=== PATIENT | female | born 1980 | race African-American/Black ===

== ENCOUNTER 2016-05-10 07:05 | Day surgery (SDC) | payer MEDICAID ==
[~2016-05-10] VITALS: Ht 160 cm; Wt 90.9 kg
[~2016-05-10 07:05] MED LIST: KETOROLAC TROMETHAMINE 60 MG/2 ML VIAL IM ONE; METOCLOPRAMIDE HCL 5 MG/ML 2 ML VIAL IVP ONE; ONDANSETRON HCL 4 MG/2 ML VIAL IVP ONE; PROPOFOL 1% 20 ML VIAL IVP ONE
[2016-05-10] MEDS ORDERED: SODIUM CHLORIDE 0.9% 1,000 ML IV ONE ×2 (07:26→07:30)
[2016-05-10] MEDS ORDERED: FentaNYL CITRATE-PF 100 MCG/2 ML VIAL IVP PRN (07:45)
[2016-05-10] MEDS ORDERED: HYDROmorphone 2 MG/ML SYRINGE IVP PRN (07:45)
[2016-05-10] MEDS ORDERED: LIDOCAINE HCL 2% VISCOUS 15 ML SOLUTION UDCUP PO ONE (07:45)
[2016-05-10] MEDS ORDERED: MEPERIDINE-PF 25 MG/ML SYRINGE IVP PRN (07:45)
[2016-05-10] MEDS ORDERED: OXYGEN THERAPY IH SCH (08:00)
[2016-05-10] MEDS ORDERED: ATOR20TA86 PO (09:19)
[2016-05-10] MEDS ORDERED: LEVO150 PO (09:19)
[2016-05-10] MEDS ORDERED: HYDR25TA PO (09:19)
== END 2016-05-10 09:40 | disposition home or self-care (01) ==
LOC: SURGERY 07:05
PROVIDERS: ATTEND Specialist
DX: K29.70 Gastritis, unspecified, without bleeding (principal); I10 Essential (primary) hypertension; E03.9 Hypothyroidism, unspecified; E66.9 Obesity, unspecified; J30.9 Allergic rhinitis, unspecified; F41.9 Anxiety disorder, unspecified; F32.9 Major depressive disorder, single episode, unspecified; M54.30 Sciatica, unspecified side; E78.6 Lipoprotein deficiency; K76.0 Fatty (change of) liver, not elsewhere classified
CPT/HCPCS: 36415; 43239; 84703; 88305; 88312; C1769; J1885; J2405; J2704; J2765; J7030